=== PATIENT | male | born 1940 | race Caucasian/White ===

== ENCOUNTER 2017-09-15 21:36 | Emergency (ER) | payer OTHER ==
[~2017-09-15] VITALS: Ht 177.8 cm; Wt 114.0 kg
[2017-09-15 22:55] LABS: BASOPHIL (%) 0.2 % (0-1); EOSINOPHIL (%) 0.7 % (0-5); EOSINOPHIL COUNT 0.1 K/uL (0-0.3); HEMATOCRIT 26.4 % (38.0-50.0); HEMOGLOBIN 8.7 G/DL (12.5-16.6); IMMATURE GRANULOCYTE (%) 1.4 % (0.0-0.7); LYMPHOCYTE (%) 7.3 % (15-42); LYMPHOCYTE COUNT 0.9 K/uL (1.0-2.8); MCH 30.3 PG (29.0-34.0); MONOCYTE (%) 7.5 % (3-12); MONOCYTE COUNT 0.9 K/uL (0-0.8); NEUTROPHIL (%) 82.9 % (45-76); NEUTROPHIL COUNT 9.8 K/uL (1.8-6.4); PLATELET COUNT 266 K/uL (156-360); RBC DIS.WIDTH-CV 15.6 % (11.8-14.6); RED BLOOD COUNT 2.87 M/uL (4.00-5.50); WHITE BLOOD COUNT 11.8 K/uL (4.1-10.2)
[2017-09-15 23:02] LABS: ALBUMIN 2.3 g/dL (3.2-4.8); CHLORIDE 104 mEq/L (99-109)
[2017-09-15 23:03] LABS: POTASSIUM 3.8 mEq/L (3.7-5.4); SODIUM 135 mEq/L (136-147)
[2017-09-15 23:05] LABS: GLUCOSE 230 mg/dL (70-99)
[2017-09-15 23:07] LABS: TOTAL BILIRUBIN 1.4 mg/dL (0.0-1.0)
[2017-09-15 23:08] LABS: ALKALINE PHOSPHATASE 121 IU/L (3-129); CREATININE 0.7 mg/dL (0.6-1.3); GFR ESTIMATE (CALCULATED) > 59 mL/min/ (58.99-99999)
[2017-09-15 23:10] LABS: AST (GOT) 16 IU/L (2-34); UREA NITROGEN (BUN) 16 mg/dL (9-23)
[2017-09-15 23:11] LABS: ALT (GPT) 26 IU/L (3-49)
[2017-09-16] MEDS ORDERED: TYLENOL REGULA325 MG PO (01:44)
[2017-09-16] MEDS ORDERED: CEFPODOXIME PR100 MG PO (01:44)
[2017-09-16] MEDS ORDERED: LOVENOX30 MG/0.3 SC (01:45)
[2017-09-16] MEDS ORDERED: CARDIZEM90 MG PO (01:45)
[2017-09-16] MEDS ORDERED: DULCOLAX10 MG PR (01:45)
[2017-09-16] MEDS ORDERED: FLONASE16 G1 BOTH NARES (01:46)
[2017-09-16] MEDS ORDERED: FUROSEMIDE40 MG PO (01:46)
[2017-09-16] MEDS ORDERED: INVOKANA100 MG PO (01:46)
[2017-09-16] MEDS ORDERED: GLIPIZIDE5 MG PO (01:46)
[2017-09-16] MEDS ORDERED: PHILLIPS'400 MG/5 M PO (01:47)
[2017-09-16] MEDS ORDERED: MIRALAX17 GM PO ×2 (01:47→01:48)
[2017-09-16] MEDS ORDERED: COZAAR100 MG PO (01:47)
[2017-09-16] MEDS ORDERED: METFORMIN HCL500 MG PO (01:47)
[2017-09-16] MEDS ORDERED: PRAVACHOL40 MG PO (01:48)
[2017-09-16] MEDS ORDERED: OXYCODONE HCL5 MG PO (01:48)
[2017-09-16] MEDS ORDERED: FLOMAX0.4 MG PO (01:49)
[2017-09-16] MEDS ORDERED: INDERAL20 MG PO (01:49)
[2017-09-16] MEDS ORDERED: TUMS500 MG PO (01:49)
[2017-09-16] MEDS ORDERED: SERTRALINE HCL25 MG PO (01:49)
[2017-09-16] MEDS ORDERED: SENNA PLUS TAB1 EACH PO (01:49)
[2017-09-16 06:21] VITALS: BP 129/75
== END 2017-09-16 06:43 | disposition short-term general hospital (02) ==
LOC: EME → EDBD 21:36 → EME 09-16 06:43
PROVIDERS: Emergency Medicine
DX: R78.81 Bacteremia (principal); S32.401D Unspecified fracture of right acetabulum, subsequent encounter for fracture with routine healing; D72.829 Elevated white blood cell count, unspecified
CPT/HCPCS: 71045; 73502; 80053; 83605; 85025; 87040; 87077; 87086; 87186; 87801; 99281; 99285; J0690; J2270; J3370; J7040

== ENCOUNTER 2017-11-05 02:17 | Emergency (ER) | payer OTHER ==
[~2017-11-05] VITALS: Ht 177.8 cm; Wt 95.5 kg
[~2017-11-05 02:17] MED LIST: CARDIZEM90 MG PO; CEFPODOXIME PR100 MG PO; COZAAR100 MG PO; DULCOLAX10 MG PR; FLOMAX0.4 MG PO; FLONASE16 G1 BOTH NARES; FUROSEMIDE40 MG PO; GLIPIZIDE5 MG PO; INDERAL20 MG PO; INVOKANA100 MG PO; LOVENOX30 MG/0.3 SC; METFORMIN HCL500 MG PO; MIRALAX17 GM PO; OXYCODONE HCL5 MG PO; PHILLIPS'400 MG/5 M PO; PRAVACHOL40 MG PO; SENNA PLUS TAB1 EACH PO; SERTRALINE HCL25 MG PO; TUMS500 MG PO; TYLENOL REGULA325 MG PO
[2017-11-05 03:44] VITALS: BP 140/78
== END 2017-11-05 03:48 ==
LOC: EME → EDBD 02:17 → EME 03:48
PROC: 0T9B70Z Drainage of Bladder with Drainage Device, Via Natural or Artificial Opening (ICD-10-PCS; principal; 2017-11-05)
DX: N40.1 Benign prostatic hyperplasia with lower urinary tract symptoms (principal); R33.9 Retention of urine, unspecified; I10 Essential (primary) hypertension; E78.5 Hyperlipidemia, unspecified; E11.9 Type 2 diabetes mellitus without complications; G47.30 Sleep apnea, unspecified; F32.9 Major depressive disorder, single episode, unspecified; Z87.440 Personal history of urinary (tract) infections; Z87.891 Personal history of nicotine dependence
CPT/HCPCS: 80053; 81003; 85027; 99281; 99284

== ENCOUNTER 2017-12-27 07:49 | Inpatient (IN) | payer OTHER ==
[~2017-12-27] VITALS: Ht 177.8 cm; Wt 96.5 kg
[2017-12-27] VITALS (25 sets, daily range): BP systolic 68–114; BP diastolic 39–65
[~2017-12-27 07:49] MED LIST changes: -METFORMIN HCL500 MG PO; +METFORMIN HCL750 MG PO
[2017-12-27 08:44] LABS: HEMATOCRIT 28.1 % (38.0-50.0); HEMOGLOBIN 8.7 G/DL (12.5-16.6); MCH 27.7 PG (29.0-34.0); MCV 89.5 FL (86-99); RBC DIS.WIDTH-CV 16.7 % (11.8-14.6); RBC DIS.WIDTH-SD 54.3 % (39-53); RED BLOOD COUNT 3.14 M/uL (4.00-5.50); WHITE BLOOD COUNT 5.8 K/uL (4.1-10.2)
[2017-12-27 08:50] LABS: INTER. NORMALIZED RATIO 1.5
[2017-12-27 08:51] LABS: CHLORIDE 109 mEq/L (99-109); POTASSIUM 3.8 mEq/L (3.7-5.4); SODIUM 141 mEq/L (136-147)
[2017-12-27 08:53] LABS: GLUCOSE 75 mg/dL (70-99)
[2017-12-27 08:54] LABS: TOTAL PROTEIN 4.2 g/dL (6.4-8.3)
[2017-12-27 08:55] LABS: TOTAL BILIRUBIN 0.6 mg/dL (0.0-1.0)
[2017-12-27 08:57] LABS: ALKALINE PHOSPHATASE 118 IU/L (3-129); GFR ESTIMATE (CALCULATED) 35 mL/min/ (58.99-99999)
[2017-12-27 08:58] LABS: UREA NITROGEN (BUN) 43 mg/dL (9-23)
[2017-12-27 08:59] LABS: AST (GOT) 9 IU/L (2-34)
[2017-12-27 09:00] LABS: ALT (GPT) 9 IU/L (3-49)
[2017-12-27 09:24] LABS: ANISOCYTOSIS 1+; BAND NEUTROPHILS 31.3 % (0-8.0); BURR CELLS 1+; EOSINOPHIL ABS CT 0; LYMPHOCYTES 9.5 % (15.0-45.0); METAMYELOCYTES 3.5 %; MYELOCYTES 0.9 %; PLAT.SUFFICIENCY DECREASED; PLATELET COUNT 131 K/uL (156-360); SEG.NEUTROPHILS 54.8 % (46.0-76.0)
[2017-12-27 09:25] LABS: APPEARANCE CLOUDY ((CLEAR)); BILIRUBIN NEGATIVE; BLOOD LARGE; GLUCOSE (STRIP) NEGATIVE; KETONES 5; LEUKOCYTES SMALL; NITRITE NEGATIVE; PROTEIN (STRIP) 100; SPECIFIC GRAVITY 1.012 (1.000-1.030); UROBILINOGEN 0.2 MG/DL (0.2-1.0)
[2017-12-27 09:26] LABS: COLOR RED ((YELLOW))
[2017-12-27 09:41] LABS: RED BLOOD CELLS TNTC /HPF (0-5); UCUL ADDED? YES
[2017-12-27] MEDS ORDERED: ATORVASTATIN CA10 MG PO (10:22)
[2017-12-27] MEDS ORDERED: LORATADINE10 M2 PO (10:23)
[2017-12-27] MEDS ORDERED: VITAMIN B-12500 MC3 PO (10:25)
[2017-12-27] MEDS ORDERED: POTASSIUM CHLO20 ME2 PO (10:30)
[2017-12-27] MEDS ORDERED: DOXYCYCLINE HY100 M3 PO (10:32)
[2017-12-27] MEDS ORDERED: MUCINEX600 MG PO (10:37)
[2017-12-27] MEDS ORDERED: PROBIOTIC250 MG PO (10:38)
[2017-12-27] MEDS ORDERED: NYSTATIN15 GM TP (10:41)
[2017-12-27 10:47] LABS: BASE EXCESS -12.6 mEq/L (-3 to +3); BICARBONATE 11.3 mEq/L (22-26); CARBOXY HGB 1.1 % (0-5); METHEMOGLOBIN 0.9 % (0-1.5); PCO2 20 mm Hg (35-45); PO2 91 mm Hg (80-100); pH 7.36 (7.35-7.45)
[2017-12-27 10:48] LABS: COMMENTS - BLOOD GASES A+C+; DEVICE NC; O2 FLOW 2 L/MIN; SITE LR
[2017-12-27 11:27] LABS: HEMATOCRIT 28.8 % (38.0-50.0); MCH 27.5 PG (29.0-34.0); MCHC 31.3 G/DL (30.0-36.0); MCV 88.1 FL (86-99); PLATELET COUNT 133 K/uL (156-360); RBC DIS.WIDTH-CV 16.9 % (11.8-14.6); RBC DIS.WIDTH-SD 54.3 % (39-53); RED BLOOD COUNT 3.27 M/uL (4.00-5.50); WHITE BLOOD COUNT 13.7 K/uL (4.1-10.2)
[2017-12-27 11:37] LABS: INTER. NORMALIZED RATIO 1.4
[2017-12-27 11:38] LABS: ALBUMIN 2.1 g/dL (3.2-4.8); CHLORIDE 112 mEq/L (99-109); POTASSIUM 3.7 mEq/L (3.7-5.4); SODIUM 141 mEq/L (136-147)
[2017-12-27 11:39] LABS: PTT 26.7 SEC (25-37)
[2017-12-27 11:40] LABS: GLUCOSE 69 mg/dL (70-99)
[2017-12-27 11:41] LABS: TOTAL PROTEIN 4.4 g/dL (6.4-8.3)
[2017-12-27 11:42] LABS: TOTAL BILIRUBIN 0.7 mg/dL (0.0-1.0)
[2017-12-27 11:44] LABS: ALKALINE PHOSPHATASE 93 IU/L (3-129); CREATININE 2.1 mg/dL (0.6-1.3); GFR ESTIMATE (CALCULATED) 33 mL/min/ (58.99-99999)
[2017-12-27 11:45] LABS: UREA NITROGEN (BUN) 42 mg/dL (9-23)
[2017-12-27 11:47] LABS: ALT (GPT) 10 IU/L (3-49); LIPASE 17 U/L (1.0-51.0)
[2017-12-27 11:49] LABS: TROP-I INTERPRETATION NEGATIVE; TROPONIN-I 0.07 ng/mL (0.0-0.30)
[2017-12-27 11:55] LABS: AST (GOT) 15 IU/L (2-34)
[2017-12-27 12:36] LABS: ABS NEUTROPHIL COUNT 12.8; ANISOCYTOSIS 1+; BAND NEUTROPHILS 30.3 % (0-8.0); BURR CELLS 1+; EOSINOPHIL ABS CT 0; LYMPHOCYTES 0.9 % (15.0-45.0); METAMYELOCYTES 4.5 %; MYELOCYTES 0.9 %; SEG.NEUTROPHILS 63.4 % (46.0-76.0)
[2017-12-28] VITALS (30 sets, daily range): BP systolic 85–131; BP diastolic 53–72
[2017-12-28 05:11] LABS: HEMATOCRIT 26.6 % (38.0-50.0); HEMOGLOBIN 8.1 G/DL (12.5-16.6); MCH 26.8 PG (29.0-34.0); MCHC 30.5 G/DL (30.0-36.0); MCV 88.1 FL (86-99); PLATELET COUNT 115 K/uL (156-360); RBC DIS.WIDTH-CV 17.1 % (11.8-14.6); RED BLOOD COUNT 3.02 M/uL (4.00-5.50)
[2017-12-28 05:49] LABS: ABS NEUTROPHIL COUNT 26.7; BAND NEUTROPHILS 19.6 % (0-8.0); EOSINOPHIL ABS CT 0; LYMPHOCYTES 0.9 % (15.0-45.0); METAMYELOCYTES 0.4 %; MONOCYTES 2.6 % (0-9.0); MYELOCYTES 0.9 %; NUCLEATED RBC'S 0.4; PLAT.SUFFICIENCY ADEQUATE; PLATELET CLUMPS PRESENT - PLATELET COUNT APPEARS ADQ.; POIKILOCYTOSIS 3+; SEG.NEUTROPHILS 75.6 % (46.0-76.0)
[2017-12-28 05:56] LABS: ALBUMIN 2.1 G/DL (3.2-4.8); ALKALINE PHOSPHATASE 66 IU/L (3-129); ALT (GPT) 11 IU/L (3-49); AST (GOT) 15 IU/L (2-34); CHLORIDE 109 MEQ/L (99-109); GFR ESTIMATE (CALCULATED) 35 mL/min/ (58.99-99999); POTASSIUM 3.5 MEQ/L (3.7-5.4); SODIUM 143 MEQ/L (136-147); TOTAL BILIRUBIN 0.6 MG/DL (0.0-1.0); TOTAL PROTEIN 4.9 G/DL (6.4-8.3); UREA NITROGEN (BUN) 38 mg/dL (9-23)
[2017-12-28 06:01] LABS: GLUCOSE 231 mg/dL (70-99)
[2017-12-28 21:26] LABS: CHLORIDE 109 MEQ/L (99-109); CREATININE 1.5 MG/DL (0.6-1.3); GFR ESTIMATE (CALCULATED) 48 mL/min/ (58.99-99999); GLUCOSE 240 mg/dL (70-99); MAGNESIUM 1.2 mg/dl (1.3-2.7); PHOSPHORUS 1.8 mg/dL (2.5-4.9); POTASSIUM 3.2 MEQ/L (3.7-5.4); SODIUM 146 MEQ/L (136-147); UREA NITROGEN (BUN) 37 mg/dL (9-23)
[2017-12-28 22:08] LABS: PROLACTIN 19.6 NG/ML
[2017-12-29] VITALS (23 sets, daily range): BP systolic 79–115; BP diastolic 48–73
[2017-12-29 06:21] LABS: ALKALINE PHOSPHATASE 59 IU/L (3-129); ALT (GPT) 11 IU/L (3-49); AST (GOT) 13 IU/L (2-34); CHLORIDE 110 MEQ/L (99-109); CREATININE 1.3 MG/DL (0.6-1.3); GFR ESTIMATE (CALCULATED) 57 mL/min/ (58.99-99999); GLUCOSE 194 mg/dL (70-99); PHOSPHORUS 2.2 mg/dL (2.5-4.9); POTASSIUM 3.1 MEQ/L (3.7-5.4); SODIUM 148 MEQ/L (136-147); TOTAL PROTEIN 4.2 G/DL (6.4-8.3); UREA NITROGEN (BUN) 33 mg/dL (9-23)
[2017-12-29 06:22] LABS: MAGNESIUM 1.6 mg/dl (1.3-2.7); TOTAL BILIRUBIN 0.4 MG/DL (0.0-1.0)
[2017-12-29 06:42] LABS: HEMATOCRIT 24.3 % (38.0-50.0); HEMOGLOBIN 7.5 G/DL (12.5-16.6); MCH 26.7 PG (29.0-34.0); MCHC 30.9 G/DL (30.0-36.0); MCV 86.5 FL (86-99); RBC DIS.WIDTH-CV 16.9 % (11.8-14.6); RED BLOOD COUNT 2.81 M/uL (4.00-5.50); WHITE BLOOD COUNT 13.3 K/uL (4.1-10.2)
[2017-12-29 09:44] LABS: EOSINOPHIL ABS CT 0.1; HYPOCHROMASIA 1+; PLAT.SUFFICIENCY DECREASED
[2017-12-29 10:36] LABS: PLATELET COUNT 73 K/uL (156-360)
[2017-12-30] VITALS (7 sets, daily range): BP systolic 101–124; BP diastolic 62–74
[2017-12-30 00:07] LABS: C DIFF TOXIN NEGATIVE (NEGATIVE)
[2017-12-30 05:25] LABS: HEMATOCRIT 26.3 % (38.0-50.0); MCH 26.8 PG (29.0-34.0); MCHC 30.4 G/DL (30.0-36.0); MCV 88.3 FL (86-99); PLATELET COUNT 60 K/uL (156-360); RBC DIS.WIDTH-CV 16.8 % (11.8-14.6); RBC DIS.WIDTH-SD 54.7 % (39-53); RED BLOOD COUNT 2.98 M/uL (4.00-5.50); WHITE BLOOD COUNT 11.2 K/uL (4.1-10.2)
[2017-12-30 06:02] LABS: ALBUMIN 2.2 G/DL (3.2-4.8); CHLORIDE 111 MEQ/L (99-109); CREATININE 1.1 MG/DL (0.6-1.3); GFR ESTIMATE (CALCULATED) > 59 mL/min/ (58.99-99999); GLUCOSE 130 mg/dL (70-99); MAGNESIUM 1.6 mg/dl (1.3-2.7); PHOSPHORUS 2.1 mg/dL (2.5-4.9); SODIUM 150 MEQ/L (136-147); TOTAL BILIRUBIN 0.4 MG/DL (0.0-1.0); TOTAL PROTEIN 4.6 G/DL (6.4-8.3); UREA NITROGEN (BUN) 30 mg/dL (9-23)
[2017-12-30 06:14] LABS: ALKALINE PHOSPHATASE 94 IU/L (3-129); ALT (GPT) 46 IU/L (3-49); AST (GOT) 56 IU/L (2-34)
[2017-12-30 06:47] LABS: ABS NEUTROPHIL COUNT 10.9; BAND NEUTROPHILS 13.1 % (0-8.0); EOSINOPHIL ABS CT 0.1; EOSINOPHILS 0.9 % (0-5.0); LYMPHOCYTES 0.9 % (15.0-45.0); MONOCYTES 0.9 % (0-9.0); OVALOCYTES 1+; PLAT.SUFFICIENCY DECREASED; POIKILOCYTOSIS 1+; SEG.NEUTROPHILS 84.2 % (46.0-76.0); SMUDGE CELLS 5.3
[2017-12-31] VITALS (13 sets, daily range): BP systolic 107–128; BP diastolic 52–76
[2017-12-31 05:19] LABS: BASOPHIL (%) 0.1 % (0-1); EOSINOPHIL (%) 1.5 % (0-5); EOSINOPHIL COUNT 0.1 K/uL (0-0.3); HEMOGLOBIN 8.4 G/DL (12.5-16.6); IMMATURE GRANULOCYTE (%) 0.8 % (0.0-0.7); LYMPHOCYTE COUNT 0.8 K/uL (1.0-2.8); MCH 26.8 PG (29.0-34.0); MCHC 31.1 G/DL (30.0-36.0); MCV 86.3 FL (86-99); MONOCYTE (%) 5.3 % (3-12); MONOCYTE COUNT 0.5 K/uL (0-0.8); NEUTROPHIL (%) 83.3 % (45-76); NEUTROPHIL COUNT 7.2 K/uL (1.8-6.4); PLATELET COUNT 69 K/uL (156-360); RBC DIS.WIDTH-CV 16.8 % (11.8-14.6); RBC DIS.WIDTH-SD 52.7 % (39-53); RED BLOOD COUNT 3.13 M/uL (4.00-5.50); WHITE BLOOD COUNT 8.7 K/uL (4.1-10.2)
[2017-12-31 06:16] LABS: ALKALINE PHOSPHATASE 108 IU/L (3-129); ALT (GPT) 33 IU/L (3-49); CHLORIDE 114 MEQ/L (99-109); CREATININE 0.9 MG/DL (0.6-1.3); GFR ESTIMATE (CALCULATED) > 59 mL/min/ (58.99-99999); GLUCOSE 166 mg/dL (70-99); MAGNESIUM 1.5 mg/dl (1.3-2.7); PHOSPHORUS 1.9 mg/dL (2.5-4.9); POTASSIUM 3.3 MEQ/L (3.7-5.4); SODIUM 149 MEQ/L (136-147); TOTAL BILIRUBIN 0.4 MG/DL (0.0-1.0); TOTAL PROTEIN 4.2 G/DL (6.4-8.3); UREA NITROGEN (BUN) 24 mg/dL (9-23)
[2017-12-31 06:20] LABS: AST (GOT) 24 IU/L (2-34)
[2017-12-31 13:43] LABS: Heparin Induced Plt Ab Negative (Negative)
[2018-01-01 07:04] VITALS: BP 124/64
[2018-01-01 08:13] LABS: UFH SRA Result Negative (Negative)
[2018-01-01 09:26] LABS: HEMATOCRIT 27.5 % (38.0-50.0); HEMOGLOBIN 8.3 G/DL (12.5-16.6); MCH 26.3 PG (29.0-34.0); MCHC 30.2 G/DL (30.0-36.0); PLATELET COUNT 79 K/uL (156-360); RBC DIS.WIDTH-CV 16.4 % (11.8-14.6); RBC DIS.WIDTH-SD 53.1 % (39-53); RED BLOOD COUNT 3.16 M/uL (4.00-5.50); WHITE BLOOD COUNT 6.3 K/uL (4.1-10.2)
[2018-01-01 09:56] LABS: CHLORIDE 113 MEQ/L (99-109); CREATININE 0.7 MG/DL (0.6-1.3); GFR ESTIMATE (CALCULATED) > 59 mL/min/ (58.99-99999); GLUCOSE 196 mg/dL (70-99); MAGNESIUM 1.5 mg/dl (1.3-2.7); PHOSPHORUS 2.1 mg/dL (2.5-4.9); POTASSIUM 3.3 MEQ/L (3.7-5.4); SODIUM 145 MEQ/L (136-147); UREA NITROGEN (BUN) 16 mg/dL (9-23)
[2018-01-01 15:01] VITALS: BP 139/65
[2018-01-02 00:24] VITALS: BP 120/65
[2018-01-02 05:50] LABS: BASOPHIL (%) 0.4 % (0-1); EOSINOPHIL (%) 5.2 % (0-5); EOSINOPHIL COUNT 0.4 K/uL (0-0.3); IMMATURE GRANULOCYTE (%) 1.5 % (0.0-0.7); LYMPHOCYTE (%) 10.9 % (15-42); LYMPHOCYTE COUNT 0.7 K/uL (1.0-2.8); MCH 26.8 PG (29.0-34.0); MCHC 30.8 G/DL (30.0-36.0); MONOCYTE (%) 7.3 % (3-12); MONOCYTE COUNT 0.5 K/uL (0-0.8); NEUTROPHIL (%) 74.7 % (45-76); PLATELET COUNT 93 K/uL (156-360); RBC DIS.WIDTH-CV 16.6 % (11.8-14.6); RBC DIS.WIDTH-SD 53.2 % (39-53); RED BLOOD COUNT 2.99 M/uL (4.00-5.50); WHITE BLOOD COUNT 6.7 K/uL (4.1-10.2)
[2018-01-02 06:23] LABS: CHLORIDE 113 MEQ/L (99-109); CREATININE 0.7 MG/DL (0.6-1.3); GFR ESTIMATE (CALCULATED) > 59 mL/min/ (58.99-99999); GLUCOSE 186 mg/dL (70-99); POTASSIUM 3.4 MEQ/L (3.7-5.4); SODIUM 143 MEQ/L (136-147); UREA NITROGEN (BUN) 12 mg/dL (9-23)
[2018-01-02 06:26] LABS: ALKALINE PHOSPHATASE 88 IU/L (3-129); ALT (GPT) 24 IU/L (3-49); AST (GOT) 14 IU/L (2-34); TOTAL BILIRUBIN 0.4 MG/DL (0.0-1.0); TOTAL PROTEIN 4.2 G/DL (6.4-8.3)
[2018-01-02 07:45] VITALS: BP 120/69
[2018-01-02 10:05] LABS: MAGNESIUM 1.6 mg/dl (1.3-2.7)
[2018-01-02 11:58] LABS: RETIC HGB EQUIVALENT 26.6 (28-36); RETICULOCYTE COUNT 0.3 % (0.5-1.8)
[2018-01-02 12:26] LABS: FERRITIN 121 NG/ML (22-322)
[2018-01-02 12:47] LABS: IRON 31 MCG/DL (35-150); TRANSFERRIN (TIBC) 106.9 mg/dL (215-380); TRANSFERRIN SATUR. 29 % (20-55)
[2018-01-02 14:02] LABS: FOLIC ACID (FOLATE) 8.6 NG/ML (5.0-22.0)
[2018-01-02 16:08] VITALS: BP 119/64
[2018-01-02 23:41] VITALS: BP 120/62
[2018-01-03 07:28] LABS: BASOPHIL (%) 0.2 % (0-1); EOSINOPHIL COUNT 0.4 K/uL (0-0.3); HEMATOCRIT 24.8 % (38.0-50.0); HEMOGLOBIN 7.7 G/DL (12.5-16.6); IMMATURE GRANULOCYTE (%) 1.6 % (0.0-0.7); LYMPHOCYTE COUNT 0.8 K/uL (1.0-2.8); MCH 26.6 PG (29.0-34.0); MCV 85.8 FL (86-99); MONOCYTE (%) 7.2 % (3-12); MONOCYTE COUNT 0.4 K/uL (0-0.8); NEUTROPHIL COUNT 4.4 K/uL (1.8-6.4); RBC DIS.WIDTH-CV 16.4 % (11.8-14.6); RBC DIS.WIDTH-SD 51.7 % (39-53); RED BLOOD COUNT 2.89 M/uL (4.00-5.50); WHITE BLOOD COUNT 6.1 K/uL (4.1-10.2)
[2018-01-03 07:46] LABS: PLATELET COUNT 128 K/uL (156-360)
[2018-01-03 07:50] VITALS: BP 111/58
[2018-01-03 08:03] LABS: ALBUMIN 1.9 G/DL (3.2-4.8); ALKALINE PHOSPHATASE 85 IU/L (3-129); ALT (GPT) 17 IU/L (3-49); AST (GOT) 10 IU/L (2-34); CHLORIDE 114 MEQ/L (99-109); CREATININE 0.6 MG/DL (0.6-1.3); GFR ESTIMATE (CALCULATED) > 59 mL/min/ (58.99-99999); GLUCOSE 174 mg/dL (70-99); POTASSIUM 3.5 MEQ/L (3.7-5.4); SODIUM 142 MEQ/L (136-147); TOTAL BILIRUBIN 0.4 MG/DL (0.0-1.0); TOTAL PROTEIN 4.2 G/DL (6.4-8.3); UREA NITROGEN (BUN) 9 mg/dL (9-23)
[2018-01-03 15:06] LABS: Heparin Induced Plt Ab Negative (Negative)
[2018-01-03 15:06] LABS: Heparin Induced Plt Ab Negative (Negative)
[2018-01-03 16:11] VITALS: BP 111/58
[2018-01-04] VITALS (10 sets, daily range): BP systolic 116–137; BP diastolic 55–74
[2018-01-04 06:15] LABS: HEMOGLOBIN 7.6 G/DL (12.5-16.6); RED BLOOD COUNT 2.85 M/uL (4.00-5.50); WHITE BLOOD COUNT 5.5 K/uL (4.1-10.2)
[2018-01-04 06:16] LABS: BASOPHIL (%) 0.2 % (0-1); EOSINOPHIL (%) 5.3 % (0-5); EOSINOPHIL COUNT 0.3 K/uL (0-0.3); HEMATOCRIT 24.5 % (38.0-50.0); LYMPHOCYTE COUNT 0.7 K/uL (1.0-2.8); MCH 26.7 PG (29.0-34.0); MONOCYTE (%) 7.5 % (3-12); MONOCYTE COUNT 0.4 K/uL (0-0.8); NEUTROPHIL COUNT 3.9 K/uL (1.8-6.4); PLATELET COUNT 142 K/uL (156-360); RBC DIS.WIDTH-CV 16.7 % (11.8-14.6); RBC DIS.WIDTH-SD 52.2 % (39-53)
[2018-01-04 06:49] LABS: ALKALINE PHOSPHATASE 97 IU/L (3-129); ALT (GPT) 14 IU/L (3-49); AST (GOT) 9 IU/L (2-34); CHLORIDE 113 MEQ/L (99-109); CREATININE 0.7 MG/DL (0.6-1.3); GFR ESTIMATE (CALCULATED) > 59 mL/min/ (58.99-99999); GLUCOSE 166 mg/dL (70-99); MAGNESIUM 1.7 mg/dl (1.3-2.7); POTASSIUM 3.5 MEQ/L (3.7-5.4); SODIUM 140 MEQ/L (136-147); TOTAL BILIRUBIN 0.4 MG/DL (0.0-1.0); TOTAL PROTEIN 4.2 G/DL (6.4-8.3); UREA NITROGEN (BUN) 7 mg/dL (9-23)
[2018-01-04 07:15] LABS: UFH SRA Result Negative (Negative)
[2018-01-04 07:15] LABS: UFH SRA Result Negative (Negative)
[2018-01-04 12:37] LABS: HEMOGLOBIN A1c (GLYCOHEMOGLOB) 6.6 % (Below 5.7)
[2018-01-05 00:09] VITALS: BP 132/74
[2018-01-05 01:22] VITALS: BP 124/69
[2018-01-05 05:56] LABS: BASOPHIL (%) 0.2 % (0-1); EOSINOPHIL (%) 4.9 % (0-5); EOSINOPHIL COUNT 0.3 K/uL (0-0.3); HEMATOCRIT 28.7 % (38.0-50.0); HEMOGLOBIN 9.1 G/DL (12.5-16.6); IMMATURE GRANULOCYTE (%) 1.5 % (0.0-0.7); LYMPHOCYTE (%) 13.6 % (15-42); LYMPHOCYTE COUNT 0.7 K/uL (1.0-2.8); MCH 26.9 PG (29.0-34.0); MCHC 31.7 G/DL (30.0-36.0); MCV 84.9 FL (86-99); MONOCYTE (%) 6.4 % (3-12); MONOCYTE COUNT 0.3 K/uL (0-0.8); NEUTROPHIL (%) 73.4 % (45-76); NEUTROPHIL COUNT 3.9 K/uL (1.8-6.4); PLATELET COUNT 167 K/uL (156-360); RBC DIS.WIDTH-CV 16.5 % (11.8-14.6); RBC DIS.WIDTH-SD 50.7 % (39-53); RED BLOOD COUNT 3.38 M/uL (4.00-5.50); WHITE BLOOD COUNT 5.3 K/uL (4.1-10.2)
[2018-01-05 06:36] LABS: ALBUMIN 2.1 G/DL (3.2-4.8); ALKALINE PHOSPHATASE 96 IU/L (3-129); ALT (GPT) 11 IU/L (3-49); AST (GOT) 9 IU/L (2-34); CHLORIDE 113 MEQ/L (99-109); CREATININE 0.6 MG/DL (0.6-1.3); GFR ESTIMATE (CALCULATED) > 59 mL/min/ (58.99-99999); GLUCOSE 170 mg/dL (70-99); MAGNESIUM 1.6 mg/dl (1.3-2.7); POTASSIUM 3.6 MEQ/L (3.7-5.4); SODIUM 140 MEQ/L (136-147); TOTAL PROTEIN 4.3 G/DL (6.4-8.3); UREA NITROGEN (BUN) 6 mg/dL (9-23)
[2018-01-05 06:41] LABS: TOTAL BILIRUBIN 0.5 MG/DL (0.0-1.0)
[2018-01-05 08:00] VITALS: BP 128/74
[2018-01-05] MEDS ORDERED: VALACYCLOVIR500 MG PO (11:50)
[2018-01-05] MEDS ORDERED: CIPROFLOXACIN250 MG PO (11:50)
[2018-01-05] MEDS ORDERED: ELIQUIS5 MG PO ×3 (11:51→13:31)
[2018-01-05] MEDS ORDERED: MAG-OXIDE400 MG PO (11:53)
[2018-01-05] MEDS ORDERED: NOVOLOG 10100 UNITS/ SC (11:54)
== END 2018-01-05 13:50 | DRG 871 ==
LOC: EME 07:49 → 4WEST 10:54 → EDOF 10:54 → ENRESERV 10:56 → 4WEST 11:29 → ENRESERV 12-31 16:51 → 4WEST 12-31 16:51 → ENRESERV 12-31 17:03 → 5SOUTH 12-31 19:39
PROVIDERS: Emergency Medicine; Hospitalist; Internal Medicine; Obstetrics & Gynecology; Student in an Organized Health Care Education/Training Program; Surgery
PROC: 0VNTXZZ Release Prepuce, External Approach (ICD-10-PCS; principal; 2017-12-27)
PROC: 05WYX3Z Revision of Infusion Device in Upper Vein, External Approach (ICD-10-PCS; principal; 2017-12-27)
PROC: 02HV33Z Insertion of Infusion Device into Superior Vena Cava, Percutaneous Approach (ICD-10-PCS; principal; 2017-12-27)
PROC: 0T9B70Z Drainage of Bladder with Drainage Device, Via Natural or Artificial Opening (ICD-10-PCS; principal; 2017-12-27)
PROC: 30233N1 Transfusion of Nonautologous Red Blood Cells into Peripheral Vein, Percutaneous Approach (ICD-10-PCS; 2018-01-04)
DX: A41.59 Other Gram-negative sepsis (principal); N39.0 Urinary tract infection, site not specified; R65.21 Severe sepsis with septic shock; N17.9 Acute kidney failure, unspecified; T83.028A Displacement of other urinary catheter, initial encounter; Y84.6 Urinary catheterization as the cause of abnormal reaction of the patient, or of later complication, without mention of misadventure at the time of the procedure; I26.99 Other pulmonary embolism without acute cor pulmonale; I82.403 Acute embolism and thrombosis of unspecified deep veins of lower extremity, bilateral; E87.0 Hyperosmolality and hypernatremia; E83.42 Hypomagnesemia; D63.8 Anemia in other chronic diseases classified elsewhere; D69.59 Other secondary thrombocytopenia; E87.2 Acidosis; N47.2 Paraphimosis; N13.6 Pyonephrosis; B00.2 Herpesviral gingivostomatitis and pharyngotonsillitis; E87.6 Hypokalemia; E83.39 Other disorders of phosphorus metabolism; I47.1 Supraventricular tachycardia; I10 Essential (primary) hypertension; E11.9 Type 2 diabetes mellitus without complications; N40.1 Benign prostatic hyperplasia with lower urinary tract symptoms; R33.8 Other retention of urine; E78.5 Hyperlipidemia, unspecified; G47.30 Sleep apnea, unspecified; K21.0 Gastro-esophageal reflux disease with esophagitis; N32.0 Bladder-neck obstruction; E66.9 Obesity, unspecified; Z68.30 Body mass index [BMI] 30.0-30.9, adult; F32.9 Major depressive disorder, single episode, unspecified; Z98.890 Other specified postprocedural states; Z86.14 Personal history of Methicillin resistant Staphylococcus aureus infection; Z79.2 Long term (current) use of antibiotics; Z87.440 Personal history of urinary (tract) infections
CPT/HCPCS: 36600; 71045; 74176; 78582; 80047; 80048 91; 80053; 80069; 81003; 82607; 82728; 82746; 82803; 82948; 83036; 83540; 83605; 83690; 83735; 84100; 84145 90; 84146; 84466; 84484; 85025; 85025 91; 85027; 85046; 85610; 85730; 86022 90; 86850; 86900; 86901; 86920; 87040; 87077; 87086; 87186; 87493; 87641; 87801; 92610 GN; 93005; 93970; 94660; 94799; 97530 GO; 97530 GP; 99281; 99285; A9540; A9567; C1751; C9113; J0696; J1652; J1815; J1940; J2370; J2405; J2543; J2997; J3370; J3475; J3480; J7030; J7050; J7070; P9016; P9045